=== PATIENT | male | born 1940 | race Caucasian/White ===

== ENCOUNTER 2016-12-08 14:03 | Emergency (ER) | payer MEDICARE, OTHER | END 2016-12-08 15:59 | disposition home or self-care (01) | LOC: FER 14:03 | DX: S61.215A Laceration without foreign body of left ring finger without damage to nail, initial encounter (principal); I51.9 Heart disease, unspecified; E11.9 Type 2 diabetes mellitus without complications; Z23 Encounter for immunization; Z79.84 Long term (current) use of oral hypoglycemic drugs; Z79.899 Other long term (current) drug therapy; Z88.8 Allergy status to other drugs, medicaments and biological substances; Z88.6 Allergy status to analgesic agent; W27.2XXA Contact with scissors, initial encounter; Y92.009 Unspecified place in unspecified non-institutional (private) residence as the place of occurrence of the external cause | CPT/HCPCS: 90471; 90715 ==

== ENCOUNTER 2020-10-29 12:30 | Emergency (ER) | payer MEDICARE, OTHER ==
[~2020-10-29 12:30] MED LIST: ACID REDUCER150 MG PO; ALLOPURINOL300 MG PO; ANTIVERT25 MG PO; ATENOLOL25 MG PO; BACTRIM DS TAB1 EACH PO; BENTYL10 MG PO; CARTIA XT240 MG PO; DIPYRIDAMOLE75 MG PO; ELIQUIS5 MG PO; GLUCOTROL XL5 MG PO; K-DUR20 MEQ PO; LASIX40 MG PO; LISINOPRIL 20MG20 MG PO; LISINOPRIL-HCT1 EAC1 PO; METFORMIN HCL500 M3 PO; NEURONTIN100 MG PO; PLAVIX75 MG PO; PRINIVIL20 MG PO; PROTONIX 40MG T40 MG PO; SIMVASTATIN20 MG PO; ZOCOR20 MG PO
[2020-10-29 14:30] LABS: BASOPHIL 0.7 % (0-2); EOSINOPHIL 1.5 % (0-7); HCT 38.6 % (42.0-52.0); HGB 12.8 g/dl (13.2-18.0); LYMPHOCYTE 26.1 % (15-48); MCH 32.4 pg (25.0-31.0); MCHC 33.2 g/dL (32.0-36.0); MCV 97.7 fL (78.0-100.0); MONOCYTE 11.6 % (0-12); MPV 9.9 fL (6.0-9.5); NEUTROPHIL 59.8 % (41-80); NRBC 0; PLT 160 K/uL (150-400); RBC 3.95 M/uL (4.70-6.00); RDW 13.4 % (11.5-14.0); WBC 6.7 K/uL (4.0-10.5)
[2020-10-29] MEDS ORDERED: NORCO 5-325 TA1 EACH PO (16:24)
== END 2020-10-29 17:00 | disposition home or self-care (01) ==
LOC: FER 12:30
PROVIDERS: Nurse Practitioner Family
DX: R04.0 Epistaxis (principal); I10 Essential (primary) hypertension; E11.9 Type 2 diabetes mellitus without complications; E78.5 Hyperlipidemia, unspecified; K21.9 Gastro-esophageal reflux disease without esophagitis; Z98.890 Other specified postprocedural states; Z95.0 Presence of cardiac pacemaker; Z88.0 Allergy status to penicillin; Z88.6 Allergy status to analgesic agent; Z87.891 Personal history of nicotine dependence; Z79.899 Other long term (current) drug therapy; Z79.84 Long term (current) use of oral hypoglycemic drugs; Z79.01 Long term (current) use of anticoagulants
CPT/HCPCS: 36415; 85025

== ENCOUNTER 2020-10-31 13:39 | Emergency (ER) | payer MEDICARE, OTHER ==
[~2020-10-31 13:39] MED LIST changes: +NORCO 5-325 TA1 EACH PO
[2020-10-31 15:28] LABS: BASOPHIL 0.6 % (0-2); EOSINOPHIL 0.5 % (0-7); HCT 42.3 % (42.0-52.0); HGB 13.5 g/dl (13.2-18.0); LYMPHOCYTE 15.3 % (15-48); MCH 31.8 pg (25.0-31.0); MCHC 31.9 g/dL (32.0-36.0); MCV 99.5 fL (78.0-100.0); MONOCYTE 11.2 % (0-12); MPV 9.8 fL (6.0-9.5); NRBC 0; PLT 162 K/uL (150-400); RBC 4.25 M/uL (4.70-6.00); RDW 13.6 % (11.5-14.0); WBC 10.4 K/uL (4.0-10.5)
[2020-10-31 15:45] LABS: INR 1.48 (0.9-1.2)
[2020-10-31 15:53] LABS: BUN/CREAT RATIO (CALC) 16.2 RATIO; CREATININE 1.85 mg/dL (0.67-1.17); POTASSIUM 5.3 mmol/L (3.5-5.1)
[2020-10-31 16:55] LABS: BILIRUBIN NEGATIVE (NEGATIVE); BLOOD NEGATIVE Ery/uL (NEGATIVE); CLARITY CLEAR (CLEAR); COLOR YELLOW (YELLOW); GLUCOSE (U) NORMAL (NORMAL); LEUKOCYTES NEGATIVE Leu/uL (NEGATIVE); NITRITE NEGATIVE (NEGATIVE); PROTEIN NEGATIVE (NEGATIVE); SPECIFIC GRAVITY 1.015 (1.001-1.030); UROBILINOGEN 0.2 mg/dL (0.2-1.0); pH 5.5 (5.0-9.0)
[2020-10-31] MEDS ORDERED: AUGMENTIN 875-1 EACH PO (17:32)
[2020-10-31] MEDS ORDERED: CLINDAMYCIN 15150 MG PO (17:53)
== END 2020-10-31 18:43 | disposition home or self-care (01) ==
LOC: FER 13:39
PROVIDERS: Nurse Practitioner Family
DX: E86.0 Dehydration (principal); R04.0 Epistaxis; I10 Essential (primary) hypertension; I48.91 Unspecified atrial fibrillation; Z95.0 Presence of cardiac pacemaker; Z88.0 Allergy status to penicillin; Z88.6 Allergy status to analgesic agent
CPT/HCPCS: 36415; 80048; 81003; 85025; 85610; J2405; J7030

== ENCOUNTER 2020-11-23 19:06 | Emergency (ER) | payer MEDICARE, OTHER ==
[~2020-11-23 19:06] MED LIST changes: +AUGMENTIN 875-1 EACH PO; +CLINDAMYCIN 15150 MG PO
== END 2020-11-24 00:07 | disposition home or self-care (01) ==
LOC: FER 19:06
DX: S09.90XA Unspecified injury of head, initial encounter (principal); I48.91 Unspecified atrial fibrillation; I25.2 Old myocardial infarction; I10 Essential (primary) hypertension; E11.9 Type 2 diabetes mellitus without complications; Z79.01 Long term (current) use of anticoagulants; Z88.0 Allergy status to penicillin; Z88.8 Allergy status to other drugs, medicaments and biological substances; Z79.899 Other long term (current) drug therapy; W07.XXXA Fall from chair, initial encounter; Y92.009 Unspecified place in unspecified non-institutional (private) residence as the place of occurrence of the external cause
CPT/HCPCS: 70450; 72125